=== PATIENT | male | born 1985 | race Caucasian/White ===

== ENCOUNTER 2016-11-04 08:12 | Inpatient (IN) ==
--- NOTE | 2016-11-04 08:24 | Emergency Department Note ---
Disposition Clinical Impression: Dog bite Qualifiers: Encounter type: initial encounter Qualified Code(s): W54.0XXA - Bitten by dog, initial encounter Cellulitis Qualifiers: Site of cellulitis: extremity Site of cellulitis of extremity: upper extremity Laterality: right Qualified Code(s): L03.113 - Cellulitis of right upper limb Myositis Qualifiers: Myositis type: infective Myositis location: hand Laterality: right Qualified Code(s): M60.041 - Infective myositis, right hand Disposition: Admitted As Inpatient Condition: Fair Referrals: NONE,PCP [Non-Partnered Physician] - Forms: ED Satisfaction Letter Time of Disposition: 10:57 Animal Bite HPI - General Chief Complaint: ED Animal Bite Stated Complaint: dog bite Time Seen by Provider: 11/04/16 08:17 Source: patient Limitations: no limitations - History of Present Illness HPI Narrative: 31-year-old male presents for evaluation of a dog bite to the right hand. He states approximately 30 hours ago, he was attempting to give his dog (his household pet) and Benadryl. His states that the patient attempted to "just of the pill down the dog's mouth instead of putting in a do not treat". The dog subsequently bit the patient at the base of his right thumb. He presents today for concerns of infection due to the increased redness, swelling , and pain. He denies any fever, chills, nausea, vomiting, or diarrhea. The dog is up-to-date on its immunizations and is a well-kept household. The patient is not up-to-date on his tetanus immunization status. He has washed the wound and applied topical Neosporin ointment. Pt Subjective Complaint: animal bite Onset (ago): hour(s) (30 hours ago) Animal: dog Description of Animal: household pet Mechanism: bite Right: hand Pain Description: dull Pain Scale: 5 Context: other Treatments prior to arrival: wound dressing(s), irrigation, antibiotic ointment - Related Data Previous Rx's Medication Instructions Recorded Lisinopril [Zestril] 5 mg PO DAILY #30 tablet 09/29/16 Allergies Allergy/AdvReac Type Severity Reaction Status Date / Time Amoxicillin Allergy See Verified 11/04/16 08:18 Comments brompheniramine Allergy See Verified 11/04/16 08:18 [From [facility] Comments (brompheniramine-PPA)] Penicillins Allergy See Verified 11/04/16 08:18 Comments phenylpropanolamine Allergy See Verified 11/04/16 08:18 [From [facility] Comments (brompheniramine-PPA)] All systems ED: reviewed and negative except as stated. Constitutional: Denies: fever, chills, weakness, weight change Eyes: Denies: eye pain, eye discharge, vision change ENT ED: Denies: ear pain, throat pain, dental pain, hearing loss, epistaxis, congestion, dysphagia Cardiovascular: Denies: chest pain, palpitations, dyspnea on exertion, edema, syncope Respiratory: Denies: cough, dyspnea, wheezes, hemoptysis, stridor Gastrointestinal: Denies: abdominal pain, nausea, vomiting, diarrhea, constipation, hematemesis, melena, hematochezia Genitourinary: Denies: urgency, dysuria, frequency, hematuria Musculoskeletal: Denies: back pain, neck pain, arthralgia, myalgia Integumentary: Reports: as per HPI, other (Dog bite right hand). Denies: rash, abrasion, lesions Neurological: Denies: headache, weakness, numbness, paresthesias, confusion, abnormal gait, vertigo Psychiatric: Denies: anxiety, depression, suicidal thoughts, homicidal thoughts , auditory hallucinations, visual hallucinations Endocrine: Denies: fatigue Hematological/Lymphatic: Denies: easy bleeding, easy bruising Allergic/Immunologic: Denies: facial swelling, urticaria Past Medical History - Past Medical History Attestation: Yes The following information was validated with the patient. Source: patient, nursing notes reviewed Medical history: Reports: hypertension - Social History Smoking Status: Never smoker Smokeless Tobacco Status: No Alcohol use: Reports: rarely Drug use: Reports: none Physical Exam - General Limitations: no limitations General appearance: alert, in no apparent distress - Head Head exam: atraumatic, normocephalic, normal inspection - Eye Eye exam: Present: normal appearance, PERRL, EOMI. Absent: nystagmus - ENT ENT exam: mucous membranes moist - Neck Neck exam: Present: normal inspection, full ROM, trachea midline - Chest Chest inspection: Present: normal inspection, symmetric chest wall rise - Respiratory Respiratory exam: Present: normal lung sounds bilaterally - Cardiovascular Cardiovascular exam: Present: regular rate, normal rhythm, normal heart sounds - Abdominal Exam Abdominal exam: Present: soft, Non-Tender, normal bowel sounds - Expanded Upper Extremity Exam Forearm/Wrist exam: Present: normal inspection, full ROM Hand exam: Present: tenderness (Tenderness of the right hand near the base of the right thumb.), swelling (Extensive swelling noted, right hand diffusely), erythema (Moderate degree of erythema noted, right hand), other (Puncture wound noted at the base of the first metacarpal. No drainage or discharge is noted.) Neuromotor exam: Normal: wrist extension, thumb opposition, fingers 2-5 abduction Neurosensory exam: Normal: radial nerve, ulnar nerve, 2-point discrimination Hand tendon exam: Normal: flexor digitorum profundus (location), extensor tendon (location) Vascular exam: Normal: capillary refill, radial pulse, ulnar pulse - Neurological Exam Neurological exam: Present: alert, oriented X3 - Psychiatric Psychiatric exam: Present: normal affect, normal mood - Skin Skin exam: Present: warm, dry, normal color Course Course Narrative: 0905: I have discussed this patient's case with Dr. Marin. Dr. Marin has had a [id number] evaluation with the patient. 1055: I have spoken with Dr. Grimaldo of the hospitalist service. Dr. Grimaldo has accepted the patient for further treatment of his cellulitis/myositis. Vital Signs Temperature 99.1 F 11/04/16 08:13 Pulse Rate 110 11/04/16 08:13 Respiratory Rate 16 11/04/16 08:13 Blood Pressure 161/104 11/04/16 08:13 O2 Sat by Pulse Oximetry 99 11/04/16 08:13 Temperature 99.1 F 11/04/16 08:13 Pulse Rate 110 11/04/16 08:13 Respiratory Rate 16 11/04/16 08:13 Blood Pressure 161/104 11/04/16 08:13 O2 Sat by Pulse Oximetry 99 11/04/16 08:13 Oxygen Delivery Oxygen Delivery Room Air Animal Bite - Medical Records Medical records reviewed: Yes I reviewed the patient's medical records. - Lab Data Lab results reviewed: Yes I reviewed the patient's lab results. Lab results narrative: Laboratory Last Values WBC 12.5 K/mcL (4.3-11.1) H 11/04/16 08:57 RBC 5.14 M/mcL (4.19-5.50) 11/04/16 08:57 Hgb 14.5 g/dL (12.9-16.9) 11/04/16 08:57 Hct 43.2 % (37.5-50.1) 11/04/16 08:57 MCV 84.0 fL (83.0-100.0) 11/04/16 08:57 MCH 28.2 pg (28.0-33.3) 11/04/16 08:57 MCHC 33.6 g/dL (31.6-35.5) 11/04/16 08:57 RDW 13.1 % (11.5-14.5) 11/04/16 08:57 Plt Count 214 K/mcL (140-400) 11/04/16 08:57 MPV 9.9 fL (9.4-12.4) 11/04/16 08:57 Immature Gran % 0.3 % (0-4) 11/04/16 08:57 Seg Neutrophils % 77.8 % 11/04/16 08:57 Lymphocytes % 12.3 % 11/04/16 08:57 Monocytes % 9.3 % 11/04/16 08:57 Eosinophils % 0.1 % 11/04/16 08:57 Basophils % 0.2 % 11/04/16 08:57 Neutrophils # 9.7 K/mcL (1.6-8.9) H 11/04/16 08:57 Lymphocytes # 1.5 K/mcL (0.6-4.6) 11/04/16 08:57 Monocytes # 1.2 K/mcL (0.0-1.3) 11/04/16 08:57 Eosinophils # 0.0 K/mcL (0.0-0.6) 11/04/16 08:57 Basophils # 0.0 K/mcL (0.0-0.2) 11/04/16 08:57 ESR 10 mm/hr (0-10) 11/04/16 08:57 Sodium 139 mEq/L (136-145) 11/04/16 08:57 Potassium 4.3 mEq/L (3.5-4.5) 11/04/16 08:57 Chloride 104 mEq/L (98-109) 11/04/16 08:57 Carbon Dioxide 27 mEq/L (19-29) 11/04/16 08:57 BUN 14 mg/dL (8-26) 11/04/16 08:57 Creatinine 0.87 mg/dL (0.72-1.25) 11/04/16 08:57 Est GFR ( Amer) > 60 (> 60) 11/04/16 08:57 Est GFR (Non-Af Amer) > 60 (> 60) 11/04/16 08:57 BUN/Creatinine Ratio 16 (6-26) 11/04/16 08:57 Glucose 87 mg/dL (70-99) 11/04/16 08:57 Calculated Osmolality 288 (280-300) 11/04/16 08:57 Lactic Acid 1.0 mmol/L (0.5-2.2) 11/04/16 09:29 Calcium 9.7 mg/dL (8.6-10.8) 11/04/16 08:57 Result diagrams: 11/04/16 08:57 11/04/16 08:57 Lab Results 11/04/16 11/04/16 11/04/16 Range/Units 08:57 08:57 08:57 WBC 12.5 H (4.3-11.1) K/mcL RBC 5.14 (4.19-5.50) M/mcL Hgb 14.5 (12.9-16.9) g/dL Hct 43.2 (37.5-50.1) % MCV 84.0 (83.0-100.0) fL MCH 28.2 (28.0-33.3) pg MCHC 33.6 (31.6-35.5) g/dL RDW 13.1 (11.5-14.5) % Plt Count 214 (140-400) K/mcL MPV 9.9 (9.4-12.4) fL Immature Gran % 0.3 (0-4) % Seg Neutrophils % 77.8 % Lymphocytes % 12.3 % Monocytes % 9.3 % Eosinophils % 0.1 % Basophils % 0.2 % Neutrophils # 9.7 H (1.6-8.9) K/mcL Lymphocytes # 1.5 (0.6-4.6) K/mcL Monocytes # 1.2 (0.0-1.3) K/mcL Eosinophils # 0.0 (0.0-0.6) K/mcL Basophils # 0.0 (0.0-0.2) K/mcL ESR 10 (0-10) mm/hr Sodium 139 (136-145) mEq/L Potassium 4.3 (3.5-4.5) mEq/L Chloride 104 (98-109) mEq/L Carbon Dioxide 27 (19-29) mEq/L BUN 14 (8-26) mg/dL Creatinine 0.87 (0.72-1.25) mg/dL Est GFR ( Amer) > 60 (> 60) Est GFR (Non-Af Amer) > 60 (> 60) BUN/Creatinine Ratio 16 (6-26) Glucose 87 (70-99) mg/dL Calculated Osmolality 288 (280-300) Lactic Acid (0.5-2.2) mmol/L Calcium 9.7 (8.6-10.8) mg/dL 11/04/16 Range/Units 09:29 WBC (4.3-11.1) K/mcL RBC (4.19-5.50) M/mcL Hgb (12.9-16.9) g/dL Hct (37.5-50.1) % MCV (83.0-100.0) fL MCH (28.0-33.3) pg MCHC (31.6-35.5) g/dL RDW (11.5-14.5) % Plt Count (140-400) K/mcL MPV (9.4-12.4) fL Immature Gran % (0-4) % Seg Neutrophils % % Lymphocytes % % Monocytes % % Eosinophils % % Basophils % % Neutrophils # (1.6-8.9) K/mcL Lymphocytes # (0.6-4.6) K/mcL Monocytes # (0.0-1.3) K/mcL Eosinophils # (0.0-0.6) K/mcL Basophils # (0.0-0.2) K/mcL ESR (0-10) mm/hr Sodium (136-145) mEq/L Potassium (3.5-4.5) mEq/L Chloride (98-109) mEq/L Carbon Dioxide (19-29) mEq/L BUN (8-26) mg/dL Creatinine (0.72-1.25) mg/dL Est GFR ( Amer) (> 60) Est GFR (Non-Af Amer) (> 60) BUN/Creatinine Ratio (6-26) Glucose (70-99) mg/dL Calculated Osmolality (280-300) Lactic Acid 1.0 (0.5-2.2) mmol/L Calcium (8.6-10.8) mg/dL - Radiology Data Radiology results reviewed: Yes I reviewed the patient's radiology results. Hand X-Ray 11/04/16 08:20 IMPRESSION: 1. Mild dorsal soft tissue swelling without acute osseous abnormality. D/ / Robert Huizar MD / Robert Huizar MD Interpreting Provider: Robert Hiuzar MD Hand CT 11/04/16 09:06 IMPRESSION: 1. Dorsal hand and wrist cellulitis with mild myositis involving the radial aspect of the thenar musculature as well as the 1st interdigital webspace musculature. No soft tissue abscess or significant infectious tenosynovitis. 2. Normal and alignment with no acute fracture or findings concerning for osteomyelitis. D/ / Santana Augstin MD / Santana Agustin MD Interpreting Provider: Santana Agustin MD Attestation Statement - Attestation Attestation: I, Bam Marin DO have provided [id number] time during the care of this patient. Detailed review the presentation, symptoms, medical history were discussed and reviewed with the mid-level provider jarred burks PA-C/TITLE EXAMINER. Medical intervention labs and imaging studies were reviewed in detail. See full documentation of physical exam and course of care in the mid-level provider 's note. I agree with the determined course of care, medical interventio,n and disposition put forth by the mid-level provider. See below documentation for changes or alterations in documentation. 31-year-old male bit by dog in his right hand. He is right-hand dominant. Swelling irritation over the dorsum of the hand. He has a puncture wound over the anatomical snuffbox. (Streaking up the forearm. Concerns for cellulitis that is not been treated and evaluated. Puncture wound was greater and 30 hours ago. Patient had labs ordered at this time x-ray was negative for acute bony abnormality routine 2 views. Patient is concerning secondary to penicillin allergy patient was started on IV antibiotics we will discuss this with the mid-level provider. Patient will be admitted for further evaluation considering the presentation and timeframe. See detailed documentation of the mid-level provider's note. Patient is otherwise stable with no acute bony abnormalities or concern for infectious etiology over the tenderness she uses a dorsum of the right hand. Patient is right-hand dominant. Ciprofloxacin and clindamycin order this time. Hand surgery consult. No other concerns or issues. Patient is stable will be admitted to hospital for definitive evaluation.
[2016-11-04] MEDS ORDERED: Tdap (Boostrix) Vaccine 0.5 ML SYRINGE IM ONE (08:37)
[2016-11-04 09:06] LABS: Basophils % 0.2 %; Eosinophils % 0.1 %; Hematocrit 43.2 % (37.5-50.1); Hemoglobin 14.5 g/dL (12.9-16.9); Immature Granulocytes % 0.3 % (0-4); Lymphocytes # 1.5 K/mcL (0.6-4.6); Lymphocytes % 12.3 %; Mean Corpuscular HGB Conc 33.6 g/dL (31.6-35.5); Mean Corpuscular Hemoglobin 28.2 pg (28.0-33.3); Mean Platelet Volume 9.9 fL (9.4-12.4); Monocytes # 1.2 K/mcL (0.0-1.3); Monocytes % 9.3 %; Neutrophils # 9.7 K/mcL (1.6-8.9); Platelet Count 214 K/mcL (140-400); Red Blood Count 5.14 M/mcL (4.19-5.50); Red Cell Distribution Width 13.1 % (11.5-14.5); Segmented Neutrophils % 77.8 %
[2016-11-04 09:15] LABS: BUN/Creatinine Ratio 16 (6-26); Blood Urea Nitrogen 14 mg/dL (8-26); Calcium 9.7 mg/dL (8.6-10.8); Carbon Dioxide 27 mEq/L (19-29); Chloride 104 mEq/L (98-109); Glucose 87 mg/dL (70-99); Osmolality,Calculated 288 (280-300); Potassium 4.3 mEq/L (3.5-4.5); Sodium 139 mEq/L (136-145); eGFR For African Americans > 60 (> 60); eGFR For Non-African Americans > 60 (> 60)
[2016-11-04] MEDS ORDERED: Clindamycin 600 MG/50 ML 600 MG/50 ML IV.SOLN IVPB STA (09:23)
[2016-11-04] MEDS ORDERED: *HR* HYDROcodone/Acet 5/325 mg TABLET PO ONE (09:43)
[2016-11-04] MEDS: 0.9 % Sodium Chloride 1,000 ML IVC SCH ×2 (10:01→10:41)
[2016-11-04] MEDS ORDERED: Ibuprofen 400 MG TABLET PO PRN (11:09)
[2016-11-04] MEDS ORDERED: Naloxone 0.4 MG/ML INJ IVP PRN (11:09)
[2016-11-04] MEDS ORDERED: Ondansetron 4 MG/2 ML VIAL IVP PRN (11:09)
[2016-11-04] MEDS ORDERED: Ketorolac 30 MG/ML VIAL IVP PRN (11:09)
[2016-11-04] MEDS ORDERED: Acetaminophen 325 MG TABLET PO PRN (11:09)
[2016-11-04] MEDS ORDERED: *HR* Morphine 2 MG/ML SYRINGE IVP PRN (11:09)
--- NOTE | 2016-11-04 11:17 | Event Note ---
Date of Encounter: 11/04/16 Time of Encounter: 11:15 1. Sepsis secondary to right hand cellulitis/myositis as a result of the dog bite noticed on CT scan Allergic to penicillin, continue ciprofloxacin IV and clindamycin IV, blood cultures Toradol for pain, tetanus shot received in the ER 2. Accelerated hypertension, continue lisinopril, order hydralazine IV as needed 3. History of hypoglycemia, continue IV fluids with LR 4. Leukocytosis secondary to sepsis Famotidine for GI prophylaxis and subcutaneous heparin for DVT prophylaxis. The patient will be admitted as inpatient, expected to stay more than 2 midnights. Full code. Time spent on this admission 40 minutes. High risk due to sepsis and myositis Full H&P to be completed by SIDNEY Majano
--- NOTE | 2016-11-04 11:23 | Internal Med History&Physical ---
<Tomas Majano - Last Filed: 11/04/16 11:57> Date of Encounter: 11/04/16 Time of Encounter: 11:00 Assessment and Plan (1) Sepsis Current visit: Yes Status: Acute Patient presents with sepsis based on WBC of 12.5 and HR of 11 bpm on admission to the ED today due to dog bite to right hand sustained 30 hours ago resulting in cellulitis and myositis. CT of the right hand with contrast the visualized dorsal hand and wrist cellulitis with mild myositis involving the radial aspect of the thenar musculature as well as the first interdigital webspace musculature. No soft tissue abscess or significant infectious tenosynovitis. Normal alignment with no acute fracture or findings concerning for osteomyelitis. Initial lactic acid was 1.0. Repeat lactic acid. Tetanus booster administered in ED. patient reports allergy to cillin drugs so IV ciprofloxacin and IV clindamycin ordered for infection coverage. Blood cultures and wound culture ordered. Toradol for pain. Follow-up labs ordered to monitor patient's leukocytosis and infection status. Qualifiers: Sepsis type: sepsis due to unspecified organism Qualified Code(s): A41.9 - Sepsis, unspecified organism (2) Cellulitis Current visit: Yes Status: Acute Patient presents with cellulitis and myositis of the right hand due to dog bite sustained 30 hours ago. Patient reports dog is up to date on his immunizations with the exception of kennel cough. Patient received tetanus booster in ED. IV ciprofloxacin and IV clindamycin for infection coverage. Wound culture, wound care daily, and wound care consult ordered. Qualifiers: Site of cellulitis: extremity Site of cellulitis of extremity: upper extremity Laterality: right Qualified Code(s): L03.113 - Cellulitis of right upper limb (3) Leukocytosis Current visit: Yes Status: Acute Patient presents with white blood count of 12.5 today due to current sepsis secondary to dog bite of the right hand. We will continue IV ciprofloxacin and IV clindamycin for infection coverage. Follow-up labs ordered to monitor WBC. Qualifiers: Leukocytosis type: unspecified Qualified Code(s): D72.829 - Elevated white blood cell count, unspecified (4) HTN (hypertension) Current visit: Yes Status: Chronic Patient presents with history of chronic hypertension. Will monitor patient vital signs and continue patient's lisinopril. Will administer hydralazine IV if warranted. Qualifiers: Hypertension type: essential hypertension Qualified Code(s): I10 - Essential (primary) hypertension (5) Hypoglycemia Current visit: Yes Status: Chronic Patient presents with history of chronic hypoglycemia. We will administer IV fluids with LR. A1c ordered in a.m. labs. Hypoglycemia protocol ordered. (6) DVT prophylaxis Current visit: Yes Status: Acute Patient to be placed on DVT prophylaxis due to current admission protocol and current symptoms. Heparin 5,000 units SQ Q8 ordered. Internal Medicine - H&P: HPI Chief complaint: Dog bite Admitted From: Emergency Dept Plans for Post Hospital Care: Home History of present illness: Mr. Lopez is a 31 year old male with medical history of hypertension and hypoglycemia presents from the ED with dog bite to the right hand and patient reports dog bite took place approximately 30 hours ago when he was attempting to get his dog Benadryl. Dog bit patient at the base of his right thumb. Mr. Lopez states that he cleaned the wound with hydrogen peroxide and Neosporin. Patient reports that dog is up-to-date on his immunizations with the exception of kennel cough. Patient was not up to date on his tetanus and received booster in ED. Upon admission to the ED, patient's vital signs include temperature 99.1 F, heart rate of 110 bpm, respiratory rate of 16, BP of 161/104, and SPO2 99% on room air. Patient's WBC on admission at 12.5. Mr. Lopez denies recent illness, chills, nausea, vomiting, changes in vision, SOB, dizziness, lightheadedness, abdominal pain, unusual bleeding, pre-syncope, or syncope. Patient currently meets sepsis criteria based on WBC and tachycardia. On examination, the patient's right hand is erythematous and edematous with scabbed puncture wound visible on the dorsal aspect of the hand. Patient is able to move digits but has some difficulty with the thumb due to cellulitis/ myositis. CT of the right hand with contrast the visualized dorsal hand and wrist cellulitis with mild myositis involving the radial aspect of the thenar musculature as well as the first interdigital webspace musculature. No soft tissue abscess or significant infectious tenosynovitis. Normal alignment with no acute fracture or findings concerning for osteomyelitis. On examination, patient is alert and oriented, hemodynamically stable, and reports no acute distress. Information taken from patient, family, chart review, and imaging and medical records. Mr. Lopez is at high risk for further morbidity due to sepsis and current symptoms and will be placed as inpatient. Time spent with patient > 40 minutes. Past Med Surg Social Fam HX - Past Medical History Source: patient, old records reviewed Medical history: hypertension, other (Hypoglycemia) - Social History Smoking Status: Never smoker Smokeless Tobacco Status: No Alcohol use: rarely Drug use: none Occupational status: employed Current living situation: Home, With Family Activity Level: Independent ambulation, Very active Recent Out of Country Travel Within the Last 8 Weeks: No Exposure or Possible Exposure to Illness During Travel: No - Family History Father Race: Family Member Ethnicity: Non- Living Status: Still Living Hx Family Cardiac Disorders: Yes (HTN) Mother Race: Family Member Ethnicity: Non- Living Status: Still Living Hx Family Endocrine Disorder: Yes (DM) Internal Medicine - H&P: Meds Lisinopril [Zestril] 5 mg PO HS 11/04/16 [History] 3 Allergy/AdvReac Type Severity Reaction Status Date / Time Amoxicillin Allergy See Verified 11/04/16 08:18 Comments brompheniramine Allergy See Verified 11/04/16 08:18 [From [facility] Comments (brompheniramine-PPA)] Penicillins Allergy See Verified 11/04/16 08:18 Comments phenylpropanolamine Allergy See Verified 11/04/16 08:18 [From [facility] Comments (brompheniramine-PPA)] All Systems PM: A 10-system review of systems was performed and is negative for pertinent findings except as documented above in the HPI. - Constitutional Constitutional: no chills, no fever(s), no night sweats - EENT Eyes: no change in vision, no discharge, no pain, no photophobia Ears: no ear discharge, no ear pain, no tinnitus Nose, mouth and throat: no dysphagia, no nasal discharge, no neck pain, no sore throat - Breasts Breasts: as per HPI - Cardiovascular Cardiovascular ROS IM: other (Tachycardia) - Respiratory Respiratory: no cough, no dyspnea, no wheezing, no excessive phlegm production - Gastrointestinal Gastrointestinal: no abdominal pain, no diarrhea, no hematemesis, no hematochezia, no melena, no nausea, no vomiting - Genitourinary Genitourinary ROS male: as per HPI - Musculoskeletal Musculoskeletal ROS IM: as per HPI, other (Pain and swelling to the right hand) , no numbness, no tingling - Integumentary Integumentary IM: other (Bite to the right hand causing erythema and edema) - Neurological Neurological ROS: no confusion, no convulsions, no focal weakness, no numbness, no tingling, no tremor(s) - Psychiatric Psychiatric: as per HPI - Endocrine Endocrine IM: as per HPI - Hematologic/Lymphatic Hematologic/Lymphatic: no easy bruising - Allergic/Immunologic Allergic/Immunologic: as per HPI - Constitutional Vitals: Temp Pulse Resp BP Pulse Ox 99.1 F 110 16 161/104 99 11/04/16 08:13 11/04/16 08:13 11/04/16 08:13 11/04/16 08:13 11/04/16 08:13 General appearance: Present: cooperative, A&O X 3, pleasant, no acute distress, obese, answers questions appropriately - Head Head exam: Present: atraumatic, normocephalic - Eye Eye exam: Present: PERRL, conjuntiva pink, sclera anicteric Pupils: Present: PERRL - ENT ENT exam: Present: normal exam, normal external ear exam - Neck Neck exam general surgery: Present: normal inspection, supple, trachea midline. Absent: lymphadenopathy - Respiratory Respiratory exam: Present: CTAB. Absent: accessory muscle use, rales, rhonchi, wheezes - Cardiovascular Cardiovascular exam: Present: RRR, +S1, +S2, tachycardia. Absent: diastolic murmur, gallop, rubs, systolic murmur - GI/Abdominal GI/Abdominal exam: Present: normal bowel sounds, soft, no peritoneal signs. Absent: distended, tenderness - Rectal Rectal exam: Present: deferred - Additional comments: exam deferred. - Extremities Exam Extremities exam: Present: warm, radial pulses palpable and symmetrical. Absent : calf tenderness, cyanotic, pedal edema - Back Exam Back exam: Present: normal inspection - Neurological Exam Neurological exam: Present: CN II-XII intact, oriented X3, no focal deficits. Absent: pronater drift, facial droop, speech deficit - Psychiatric Psychiatric exam: Present: normal affect, normal mood - Skin Skin exam: Present: dry, intact Internal Med - H&P Results - Labs CBC & Chem 7: 11/04/16 08:57 11/04/16 08:57 Labs: Short CBC 11/04/16 Range/Units 08:57 WBC 12.5 H (4.3-11.1) K/mcL Hgb 14.5 (12.9-16.9) g/dL Hct 43.2 (37.5-50.1) % Plt Count 214 (140-400) K/mcL Neutrophils # 9.7 H (1.6-8.9) K/mcL BMP 11/04/16 08:57 Sodium 139 Potassium 4.3 Chloride 104 Carbon Dioxide 27 BUN 14 Creatinine 0.87 Glucose 87 Calcium 9.7 - Impressions ITS Impressions Hand X-Ray 11/04/16 08:20 IMPRESSION: 1. Mild dorsal soft tissue swelling without acute osseous abnormality. D/ / Robert Huizar MD / Robert Huizar MD Interpreting Provider: Robert Huizar MD Hand CT 11/04/16 09:06 IMPRESSION: 1. Dorsal hand and wrist cellulitis with mild myositis involving the radial aspect of the thenar musculature as well as the 1st interdigital webspace musculature. No soft tissue abscess or significant infectious tenosynovitis. 2. Normal hand alignment with no acute fracture or findings concerning for osteomyelitis. D/ / 11/04/2016 10:54:29 Santana Agustin MD / brett Interpreting Provider: Santana Agustin MD - Diagnostic Studies Other Images Additional comments: Impressions Hand X-Ray 11/04/16 08:20 IMPRESSION: 1. Mild dorsal soft tissue swelling without acute osseous abnormality. D/ / Robert Huizar MD / Robert Huizar MD Interpreting Provider: Robert Huizar MD Hand CT 11/04/16 09:06 IMPRESSION: 1. Dorsal hand and wrist cellulitis with mild myositis involving the radial aspect of the thenar musculature as well as the 1st interdigital webspace musculature. No soft tissue abscess or significant infectious tenosynovitis. 2. Normal hand alignment with no acute fracture or findings concerning for osteomyelitis. D/ / 11/04/2016 10:54:29 Santana Agustin MD / brett Interpreting Provider: Santana Agustin MD <Rickey Lambert H - Last Filed: 11/04/16 18:25> Date of Encounter: 11/04/16 Internal Medicine - H&P: HPI History of present illness: Mr. Lopez is a 31 year old male All Systems PM: A 10-system review of systems was performed and is negative for pertinent findings except as documented above in the HPI. - Constitutional Vitals: Temp Pulse Resp BP Pulse Ox 98.3 F 89 18 117/72 99 11/04/16 14:36 11/04/16 14:36 11/04/16 14:36 11/04/16 14:36 11/04/16 14:36 Internal Med - H&P Results - Labs CBC & Chem 7: 11/04/16 08:57 11/04/16 08:57 - Attending Attestation 1. Sepsis secondary to right hand cellulitis/myositis as a result of the dog bite noticed on CT scan Allergic to penicillin, continue ciprofloxacin IV and clindamycin IV, blood cultures Toradol for pain, tetanus shot received in the ER 2. Accelerated hypertension, continue lisinopril, order hydralazine IV as needed 3. History of hypoglycemia, continue IV fluids with LR 4. Leukocytosis secondary to sepsis Famotidine for GI prophylaxis and subcutaneous heparin for DVT prophylaxis. The patient will be admitted as inpatient, expected to stay more than 2 midnights. Full code. Time spent on this admission 40 minutes. High risk due to sepsis and myositis For this encounter, I have reviewed the [employer] or PA documentation, treatment plan, and medical decision making; and I have had face to face time with this patient.
[2016-11-04] MEDS: Ringers Solution, Lactated 1,000 ML IVC SCH ×2 (13:09→23:20)
[2016-11-04] MEDS ORDERED: Clindamycin 600 MG/50 ML 600 MG/50 ML IV.SOLN IVPB SCH ×2 (16:00→18:00)
[2016-11-04] MEDS: Silvasorb 44.4 ML TUBE TP SCH (18:03)
[2016-11-04] MEDS: *HR* Heparin 5,000 UNIT/ML VIAL SQ SCH (18:03)
[2016-11-04] MEDS: Clindamycin 600 MG/50 ML 600 MG/50 ML IV.SOLN IVPB SCH (19:00)
[2016-11-04] MEDS: Famotidine 20 MG TABLET PO SCH (20:29)
[2016-11-05] MEDS: Clindamycin 600 MG/50 ML 600 MG/50 ML IV.SOLN IVPB SCH ×3 (03:06→18:45)
[2016-11-05] MEDS: *HR* Heparin 5,000 UNIT/ML VIAL SQ SCH ×2 (05:06→17:27)
[2016-11-05 06:09] LABS: Basophils % 0.3 %; Eosinophils # 0.1 K/mcL (0.0-0.6); Eosinophils % 0.9 %; Hematocrit 38.2 % (37.5-50.1); Immature Granulocytes % 0.4 % (0-4); Lymphocytes # 1.3 K/mcL (0.6-4.6); Lymphocytes % 18.4 %; Mean Corpuscular HGB Conc 33.8 g/dL (31.6-35.5); Mean Corpuscular Hemoglobin 28.7 pg (28.0-33.3); Mean Corpuscular Volume 85.1 fL (83.0-100.0); Mean Platelet Volume 10.3 fL (9.4-12.4); Monocytes # 0.7 K/mcL (0.0-1.3); Monocytes % 10.2 %; Neutrophils # 4.8 K/mcL (1.6-8.9); Platelet Count 183 K/mcL (140-400); Red Blood Count 4.49 M/mcL (4.19-5.50); Red Cell Distribution Width 13.3 % (11.5-14.5); Segmented Neutrophils % 69.8 %
[2016-11-05 06:11] LABS: Hemoglobin 12.9 g/dL (12.9-16.9)
[2016-11-05 06:22] LABS: BUN/Creatinine Ratio 12 (6-26); Blood Urea Nitrogen 8 mg/dL (8-26); Calcium 9.3 mg/dL (8.6-10.8); Carbon Dioxide 26 mEq/L (19-29); Chloride 107 mEq/L (98-109); Glucose 90 mg/dL (70-99); Osmolality,Calculated 286 (280-300); Potassium 4.2 mEq/L (3.5-4.5); Sodium 139 mEq/L (136-145); eGFR For African Americans > 60 (> 60); eGFR For Non-African Americans > 60 (> 60)
[2016-11-05] MEDS: Famotidine 20 MG TABLET PO SCH ×2 (08:49→21:00)
[2016-11-05] MEDS: Ringers Solution, Lactated 1,000 ML IVC SCH ×3 (08:52→22:54)
--- NOTE | 2016-11-05 14:47 | Internal Med Progress Note ---
<Yonathan Rojas - Last Filed: 11/05/16 14:43> Date of Encounter: 11/05/16 Time of Encounter: 11:00 - Assessment and plan (1) Dog bite Current Visit: Yes Status: Acute Assessment and plan: - Known dog bite on Monday, with associated erythema, warmth, swelling Reportedly improved per patient and per chart review Initially septic on presentation with WBC of 12.5 and heart rate of 111 Vital signs stable today, leukocytosis has resolved. Limited but improved range of motion Due to penicillin allergy patient has been receiving clindamycin and ciprofloxacin Received tetanus booster in the emergency department - Due to continued swelling and erythema of right hand extending to the wrist we will continue to monitor patient for improvement for an additional day and sent home prescription of oral antibiotics upon discharge - If concern for tendon involvement, may consider consulting hand surgeon Qualifiers: Encounter type: initial encounter Qualified Code(s): W54.0XXA - Bitten by dog, initial encounter (2) Cellulitis Current Visit: Yes Status: Acute Assessment and plan: - Plan as above Qualifiers: Site of cellulitis: extremity Site of cellulitis of extremity: upper extremity Laterality: right Qualified Code(s): L03.113 - Cellulitis of right upper limb (3) Sepsis Current Visit: Yes Status: Resolved Assessment and plan: Resolved, no evidence of fevers overnight, no tachycardia. Leukocytosis resolved - Lactic acid emergency department was 1 Qualifiers: Sepsis type: sepsis due to unspecified organism Qualified Code(s): A41.9 - Sepsis, unspecified organism (4) HTN (hypertension) Current Visit: Yes Status: Chronic Assessment and plan: Blood pressure of 138/74 - We will continue home medications Qualifiers: Hypertension type: essential hypertension Qualified Code(s): I10 - Essential (primary) hypertension (5) DVT prophylaxis Current Visit: Yes Status: Acute Assessment and plan: Heparin 5000 units - Time Spent With Patient less than 15 minutes - Subjective Interval history: Patient was seen and examined at bedside. He states the erythema and edema are improved since yesterday. He denies any pain at this time. He denies anything draining from the area. He denies any symptoms of fevers, chills, chest pain, shortness of breath. - Constitutional Vitals: Temp Pulse Resp BP Pulse Ox 98.1 F 90 18 134/83 97 11/05/16 14:28 11/05/16 14:28 11/05/16 14:28 11/05/16 14:28 11/05/16 14:28 General appearance: Present: cooperative, A&O X 3, pleasant, no acute distress, obese, answers questions appropriately Exam: Gen.: Vitals noted. No acute distress. AAOx3 HEENT: PERRL/EOMI, oropharynx clear, Normocephalic, atraumatic Neck: Supple. No adenopathy. Cardiac: RRR, no murmur, +S1/S2 Pulmonary: CTA bilaterally, no wheezes, rales or rhonchi, equal chest expansion Abdomen: soft, nontender, BS noted, no guarding Back: Nontender throughout. MSK: ROM intact, no joint swelling noted Extremities: Right hand significant erythema, warmth and swelling to the wrist. No obvious signs of exudates. Reportedly improved from previous per patient. no BLE edema, nontender calf, no cyanosis or clubbing Neuro: A&Ox3, moves all extremities, no focal deficits Psych: Appropriate mood and behavior Internal Medicine: Result - Labs CBC & Chem 7: 11/05/16 05:15 11/05/16 05:15 Labs: Short CBC 11/05/16 Range/Units 05:15 WBC 6.9 (4.3-11.1) K/mcL Hgb 12.9 D (12.9-16.9) g/dL Hct 38.2 (37.5-50.1) % Plt Count 183 (140-400) K/mcL Neutrophils # 4.8 (1.6-8.9) K/mcL BMP 11/05/16 05:15 Sodium 139 Potassium 4.2 Chloride 107 Carbon Dioxide 26 BUN 8 Creatinine 0.68 L Glucose 90 Calcium 9.3 Consult Discharge Plan - Plan Referrals: Jose Harrington DO [Primary Care Provider] - <Frederick Lopez - Last Filed: 11/05/16 18:39> Date of Encounter: 11/05/16 - Assessment and plan (1) Dog bite Current Visit: Yes Status: Acute Qualifiers: Encounter type: initial encounter Qualified Code(s): W54.0XXA - Bitten by dog, initial encounter (2) Cellulitis Current Visit: Yes Status: Acute Qualifiers: Site of cellulitis: extremity Site of cellulitis of extremity: upper extremity Laterality: right Qualified Code(s): L03.113 - Cellulitis of right upper limb (3) Sepsis Current Visit: Yes Status: Resolved Qualifiers: Sepsis type: sepsis due to unspecified organism Qualified Code(s): A41.9 - Sepsis, unspecified organism (4) Myositis Current Visit: Yes Status: Acute Qualifiers: Myositis type: infective Myositis location: hand Laterality: right Qualified Code(s): M60.041 - Infective myositis, right hand (5) HTN (hypertension) Current Visit: Yes Status: Chronic Qualifiers: Hypertension type: essential hypertension Qualified Code(s): I10 - Essential (primary) hypertension - Time Spent With Patient My time was 35min - Constitutional Vitals: Temp Pulse Resp BP Pulse Ox 98.1 F 90 18 134/83 97 11/05/16 14:28 11/05/16 14:28 11/05/16 14:28 11/05/16 14:28 11/05/16 14:28 Internal Medicine: Result - Labs CBC & Chem 7: 11/05/16 05:15 11/05/16 05:15 Labs: Short CBC 11/05/16 Range/Units 05:15 WBC 6.9 (4.3-11.1) K/mcL Hgb 12.9 D (12.9-16.9) g/dL Hct 38.2 (37.5-50.1) % Plt Count 183 (140-400) K/mcL Neutrophils # 4.8 (1.6-8.9) K/mcL BMP 11/05/16 05:15 Sodium 139 Potassium 4.2 Chloride 107 Carbon Dioxide 26 BUN 8 Creatinine 0.68 L Glucose 90 Calcium 9.3 - Attending Attestation I examined this patient and my medical decision-making was reviewed with the Resident Physician on 11/05/16. I agree with the documented findings, disposition and treatment plan as described except to the extent set forth below. Mr. Lopez is currently admitted for cellulitis related to dog bite. He remains moderate to high risk due to potential for worsening infectious issues. Mr. Lopez is doing a little better. Less erythema and pain. No fever. Can move hand more. Exam Alert. R hand with erythema on thenar area. No streaking I/P 1. Dog bite 2. Cellulitis Further diagnoses and plan as above.
[2016-11-05] MEDS: Silvasorb 44.4 ML TUBE TP SCH (16:36)
[2016-11-05] MEDS: 0.9 % Sodium Chloride 1,000 ML IVC SCH ×5 (19:41→21:08)
[2016-11-06] MEDS: Clindamycin 600 MG/50 ML 600 MG/50 ML IV.SOLN IVPB SCH (03:53)
[2016-11-06 04:07] LABS: Basophils % 0.6 %; Eosinophils # 0.1 K/mcL (0.0-0.6); Eosinophils % 1.7 %; Hemoglobin 12.9 g/dL (12.9-16.9); Immature Granulocytes % 0.4 % (0-4); Immature Platelets 2.1 % (1.1-6.1); Lymphocytes # 1.2 K/mcL (0.6-4.6); Lymphocytes % 22.6 %; Mean Corpuscular HGB Conc 33.1 g/dL (31.6-35.5); Mean Corpuscular Volume 84.6 fL (83.0-100.0); Mean Platelet Volume 9.7 fL (9.4-12.4); Monocytes # 0.5 K/mcL (0.0-1.3); Neutrophils # 3.4 K/mcL (1.6-8.9); Platelet Count 193 K/mcL (140-400); Red Blood Count 4.61 M/mcL (4.19-5.50); Red Cell Distribution Width 13.2 % (11.5-14.5); Segmented Neutrophils % 64.7 %
[2016-11-06 04:19] LABS: BUN/Creatinine Ratio 10 (6-26); Blood Urea Nitrogen 7 mg/dL (8-26); Calcium 9.2 mg/dL (8.6-10.8); Carbon Dioxide 25 mEq/L (19-29); Chloride 109 mEq/L (98-109); Glucose 97 mg/dL (70-99); Osmolality,Calculated 288 (280-300); Potassium 4.2 mEq/L (3.5-4.5); Sodium 140 mEq/L (136-145); eGFR For African Americans > 60 (> 60); eGFR For Non-African Americans > 60 (> 60)
[2016-11-06] MEDS: *HR* Heparin 5,000 UNIT/ML VIAL SQ SCH (06:35)
--- NOTE | 2016-11-06 07:54 | Discharge Summary ---
<Yonathan Rojas - Last Filed: 11/06/16 09:54> Date of Encounter: 11/06/16 Time of Encounter: 07:52 - Discharge Diagnosis (1) Dog bite Priority: Primary Status: Acute Qualifiers: Encounter type: initial encounter Qualified Code(s): W54.0XXA - Bitten by dog, initial encounter (2) Cellulitis Priority: Secondary Status: Acute Qualifiers: Site of cellulitis: extremity Site of cellulitis of extremity: upper extremity Laterality: right Qualified Code(s): L03.113 - Cellulitis of right upper limb (3) Sepsis Priority: Secondary Status: Resolved Qualifiers: Sepsis type: sepsis due to unspecified organism Qualified Code(s): A41.9 - Sepsis, unspecified organism (4) HTN (hypertension) Priority: Secondary Status: Chronic Qualifiers: Hypertension type: essential hypertension Qualified Code(s): I10 - Essential (primary) hypertension (5) DVT prophylaxis Priority: Secondary Status: Acute - Discharge Medications Prescriptions: Clindamycin [Cleocin] 300 mg PO Q8HR #24 capsule Ciprofloxacin [Cipro] 500 mg PO BID #16 tablet Home Medications: Lisinopril [Zestril] 5 mg PO HS 11/04/16 [History] Ciprofloxacin [Cipro] 500 mg PO BID #16 tablet 11/06/16 [Rx] Clindamycin [Cleocin] 300 mg PO Q8HR #24 capsule 11/06/16 [Rx] Allergies/Adverse Reactions: 3 Allergy/AdvReac Type Severity Reaction Status Date / Time Amoxicillin Allergy See Verified 11/04/16 08:18 Comments brompheniramine Allergy See Verified 11/04/16 08:18 [From [facility] Comments (brompheniramine-PPA)] Penicillins Allergy See Verified 11/04/16 08:18 Comments phenylpropanolamine Allergy See Verified 11/04/16 08:18 [From [facility] Comments (brompheniramine-PPA)] Date of admission: 11/04/16 11:26 Primary care physician: Jose Harrington Consults: 11/04/16 11:49 Consult to Wound Care [CONS] Routine Reason for Consult: Dog bite to right hand resulting in cellulitis and myositis. Call Completed: No Discharging clinician: Yonathan Rojas Anticipated date of discharge: 11/06/16 - Patient Status Disposition: Home, Self-Care Condition: Good Functional capacity at discharge: independent ambulation Overall status at discharge: patient is progressing back to baseline - Discharge Instructions Instructions: Cellulitis (DC), Sepsis (DC), Chronic Hypertension (DC) Follow Up With: Jose Harrington DO [Primary Care Provider] - Forms: Work/School Release Additional Instructions: Please follow up with your Primary care provider within the next week and complete your course of antibiotics. - Diet and Activity Activity: increase activity as tolerated, resume usual activities as tolerated Diet: advance to your usual diet Hospital course: Mr. Lopez is a 31 year old male presented to the emergency department after being bitten by his dog. He states he was trying to give his dog a pill and tried to force the pill down the dog's throat when he was bit. He states it happened Monday evening, however did not initially present and attempted to wash the wound with hydrogen peroxide and antibiotic ointment. He noticed increased redness and swelling with streaking running up his right arm and presented to the emergency department. He states he is up-to-date on tetanus. He denies any symptoms of fevers, chills, nausea, vomiting he does admit to swelling, erythema, decreased range of motion of the right hand. In the emergency department, vital signs are significant for a temperature of 99.1, heart rate 110, blood pressure 161/104 remainder within normal limits. Lab results were significant for a WBC of 12.5, remainder within normal limits. Hand x-ray showed mild dorsal soft tissue swelling without acute osseous abnormality. Head CT showed dorsal hand and wrist cellulitis with mild myositis. Patient was admitted to medicine service for further management and need for IV antibiotics secondary to cellulitis and myositis of the right hand secondary to dog bite. During course of hospital stay, patient continued to improve. He experienced no further febrile episodes, heart rate returned to normal limits. He was treated with ciprofloxacin and clindamycin in the setting of penicillin allergy. He received total of 3 days of antibiotics will be sent home from additional 8 days on oral antibiotics. His range of motion has improved, erythema has resolved, swelling has improved. On day of discharge, he has no current complaints except for mild swelling. He will be instructed to follow- up with his primary care physician and to complete his course of antibiotics. Any questions he had were answered, and he will be given a work excuse involving lifting of boxes until Monday11/09/16. He will be discharged on stable medical condition and he was instructed to return to emergency department if his condition should worsen. - Time Spent with Patient Total time spent providing and/or coordinating discharge services: 40 minutes - Constitutional Vitals: Temp Pulse Resp BP Pulse Ox 98.3 F 85 15 145/95 100 11/06/16 07:00 11/06/16 07:00 11/06/16 07:00 11/06/16 07:00 11/06/16 07:00 General appearance: Present: cooperative, A&O X 3, pleasant, no acute distress, obese, answers questions appropriately Exam: Gen.: Vitals noted. No acute distress. AAOx3 HEENT: PERRL/EOMI, oropharynx clear, Normocephalic, atraumatic Neck: Supple. No adenopathy. Cardiac: RRR, no murmur, +S1/S2 Pulmonary: CTA bilaterally, no wheezes, rales or rhonchi, equal chest expansion Abdomen: soft, nontender, BS noted, no guarding Back: Nontender throughout. MSK: Mildly limited range of motion in the right hand thumb opposition secondary to swelling, pain. Swelling without erythema and right hand thumb PIP Skin: No erythema noted over right hand/arm. Extremities: no BLE edema, nontender calf, no cyanosis or clubbing Neuro: A&Ox3, moves all extremities, no focal deficits Psych: Appropriate mood and behavior <Frederick Lopez - Last Filed: 11/06/16 11:33> Date of Encounter: 11/06/16 - Discharge Diagnosis (1) Cellulitis Priority: Primary Status: Acute Qualifiers: Site of cellulitis: extremity Site of cellulitis of extremity: upper extremity Laterality: right Qualified Code(s): L03.113 - Cellulitis of right upper limb (2) Myositis Priority: Secondary Status: Acute Qualifiers: Myositis type: infective Myositis location: hand Laterality: right Qualified Code(s): M60.041 - Infective myositis, right hand (3) Dog bite Status: Acute Qualifiers: Encounter type: subsequent encounter Qualified Code(s): W54.0XXD - Bitten by dog, subsequent encounter (4) Sepsis Status: Resolved Qualifiers: Sepsis type: sepsis due to unspecified organism Qualified Code(s): A41.9 - Sepsis, unspecified organism (5) HTN (hypertension) Status: Chronic Qualifiers: Hypertension type: essential hypertension Qualified Code(s): I10 - Essential (primary) hypertension Date of admission: 11/04/16 11:26 Primary care physician: Jose Harrington Consults: 11/04/16 11:49 Consult to Wound Care [CONS] Routine Reason for Consult: Dog bite to right hand resulting in cellulitis and myositis. Call Completed: No Hospital course: Mr. Lopez is a 31 year old male - Time Spent with Patient Total time spent providing and/or coordinating discharge services: 37min - Constitutional Vitals: Temp Pulse Resp BP Pulse Ox 98.1 F 81 16 133/77 97 11/06/16 10:30 11/06/16 10:30 11/06/16 10:30 11/06/16 10:30 11/06/16 10:30 - Attending Attestation I examined this patient and my medical decision-making was reviewed with the Resident Physician on 11/06/16. I agree with the documented findings, disposition and treatment plan as described except to the extent set forth below. Mr. Lopez has been admitted for acute cellulitis R hand due to dog bite. He has steadily improved. He is afebrile with stable vitals and normal WBC. Exam Alert. Comfortable R hand with much decreased erythema and edema. He is able to move all his fingers and has no palmar pain. Diffuse edema of whole hand. Decreased erythema of thenar area. Heart reg No wheeze Plan D/C home today on PO Clinda and Cipro Discussed with patient that if worsening erythema, fever or pain (especially in palm of hand) he needs to return TAB
[2016-11-06] MEDS: Ringers Solution, Lactated 1,000 ML IVC SCH (09:06)
[2016-11-06] MEDS: Famotidine 20 MG TABLET PO SCH (09:07)
[2016-11-06] MEDS: Silvasorb 44.4 ML TUBE TP SCH (09:08)
[2016-11-06 10:40] VITALS: BP 133/77
== END 2016-11-06 11:15 | disposition home or self-care (01) | DRG 872 ==
LOC: EMEROO 08:12 → SUATTDRO 11:26 → 3ANU 11:26
PROVIDERS: ADMIT Internal Medicine; ATTEND Internal Medicine